=== PATIENT | male | born 1940 ===

== ENCOUNTER 2018-05-06 20:35 | Emergency (ER) | payer MEDICARE, OTHER ==
[2018-05-06 21:13] VITALS: RESP 18; O2SAT 99
--- NOTE | 2018-05-06 22:40 | ED PDOC ---
Lower Extremity Pain/Injury Time Seen by Provider: 05/06/18 22:17 Chief Complaint (Nursing): Lower Extremity Problem/Injury Chief Complaint (Provider): swollen feet History Per: Family (granddaughter) History/Exam Limitations: no limitations Onset/Duration Of Symptoms: Days Additional Complaint(s): 77 y/o male brought in by granddaughter for evaluation of bilateral leg swelling for a few days. Granddaughter was concerned due to patient having a stroke one month ago, so she brought him to urgent care and they sent him to ED for ultrasound to rule out DVTs. Patient denies fever, headache, dizziness, chest pain, shortness of breath, palpitations, recent travel, tobacco use. Past Medical History Reviewed: Historical Data, Nursing Documentation, Vital Signs Vital Signs: Last Vital Signs Temp 98.9 F 05/06/18 21:11 Pulse 82 05/06/18 21:11 Resp 18 05/06/18 21:11 BP 160/76 H 05/06/18 21:11 Pulse Ox 99 05/06/18 21:11 - Medical History PMH: CVA, HTN, Hypercholesterolemia - Surgical History Surgical History: Hernia Repair - Family History Family History: States: No Known Family Hx - Living Arrangements Living Arrangements: With Family - Allergies Allergies/Adverse Reactions: Allergies Allergy/AdvReac Type Severity Reaction Status Date / Time Penicillins Allergy RASH Verified 05/06/18 21:11 Review of Systems ROS Statement: Except As Marked, All Systems Reviewed And Found Negative Musculoskeletal: Positive for: Leg Pain Physical Exam - Reviewed Nursing Documentation Reviewed: Yes Vital Signs Reviewed: Yes - Physical Exam Appears: Positive for: Well, Non-toxic, No Acute Distress Head Exam: Positive for: ATRAUMATIC, NORMAL INSPECTION, NORMOCEPHALIC Skin: Positive for: Normal Color Eye Exam: Positive for: Normal appearance ENT: Positive for: Normal ENT Inspection Cardiovascular/Chest: Positive for: Regular Rate, Rhythm Respiratory: Positive for: Normal Breath Sounds Extremity: Positive for: Normal ROM, Capillary Refill, Swelling (mild edema noted b/l ankles; FROM). Negative for: Tenderness, Calf Tenderness, Deformity Neurologic/Psych: Positive for: Alert, Oriented (x3) - ECG O2 Sat by Pulse Oximetry: 99 - Progress ED Course And Treament: u/s ordered Patient declines blood work at this time Patient left ED before treatment completed Disposition - Clinical Impression Clinical Impression: Leg swelling - Disposition Disposition: Left W/O Treatment Disposition Time: 23:45 Condition: STABLE Forms: [facility] (Khmer)
[2018-05-07 08:10] VITALS: BP 150/76; PULSE 80; TEMP 98.7
== END 2018-05-06 23:55 | disposition left against medical advice (07) ==
LOC: H.ER 20:35
DX: R60.0 Localized edema (principal); Z88.0 Allergy status to penicillin